=== PATIENT | male | born 1975 | race Caucasian/White ===

== ENCOUNTER 2020-04-01 16:23 | Outpatient (REF) | payer OTHER, SELFPAY | END 2020-04-01 16:24 | disposition home or self-care (01) | LOC: HO.LAB 16:23 | PROVIDERS: Visit Provider Internal Medicine | DX: Z20.822 Contact with and (suspected) exposure to COVID-19 (principal) | CPT/HCPCS: 36415; C9803; U0003 ==

== ENCOUNTER 2020-04-30 22:17 | Emergency (ER) | payer OTHER, SELFPAY ==
[2020-04-30 22:27] VITALS: BP 153/91; PULSE 84; RESP 16; TEMP 36.6; O2SAT 98; BMI 23.7
[2020-05-01] VITALS: PULSE 80; RESP 16
[2020-05-01] MEDS: Acetaminophen 325 MG TABLET 975 MG PO (01:34)
[2020-05-01] MEDS: Ketorolac Tromethamine 15 MG/ML VIAL IM (01:35)
[2020-05-01] MEDS: Lidocaine 4 % Patch ADH..PATCH 1 PATCH TRANSDERMA (01:35)
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
== END 2020-05-01 02:46 | disposition home or self-care (01) ==
PROVIDERS: Emergency Provider Student in an Organized Health Care Education/Training Program
DX: Z04.1 Encounter for examination and observation following transport accident (principal); M62.838 Other muscle spasm
CPT/HCPCS: 96372; 99284; J1885

== ENCOUNTER 2021-01-13 07:38 | Outpatient (REF) | payer OTHER, SELFPAY ==
--- NOTE | ~2021-01-13 | CT_ITS ---
EXAMINATION: CT ABDOMEN AND PELVIS WITH CONTRAST CLINICAL INFORMATION: Right lower quadrant pain COMPARISON: Previous CT of the abdomen and pelvis August 2017 and renal ultrasound November 2017 TECHNIQUE: Multidetector volumetric images were obtained from the superior aspect of the liver through the pubic symphysis following administration 85 mL of Omnipaque 350 intravenous contrast. Sagittal and coronal reformatted images were obtained on the technologist's workstation. Oral contrast: Yes This CT examination was performed using dose optimization techniques as appropriate, variously including the following: *Automated exposure control *Adjustment of mA and/or kV according to patient size (this includes techniques or standardized protocols for targeted exams where dose is matched to indication/reason for exam; i.e. extremities or head) *Use of iterative reconstruction technique DLP: 340 mGy-cm FINDINGS: LUNG BASES: The visualized lung bases are unremarkable. LIVER, GALLBLADDER, AND BILIARY TREE: The liver is normal in size, shape, and attenuation. There is a small 5 mm low-attenuation lesion in the right lobe of the liver axial image 16 series 3. This is too small to definitively characterize but probably represents a cyst and is stable from previous exam. No other focal liver lesion is seen. The gallbladder is unremarkable with no evidence of radiopaque gallstones, gallbladder wall thickening, or obvious pericholecystic inflammatory changes. PANCREAS: Unremarkable. SPLEEN: Unremarkable. ADRENAL GLANDS: Unremarkable. KIDNEYS AND URETERS: The kidneys are normal in size, shape, and attenuation. No hydronephrosis, hydroureter, or calculi seen. No perinephric stranding. BLADDER: Unremarkable. GASTROINTESTINAL TRACT: There is stool throughout the colon questionable for constipation. The small and large bowel are otherwise unremarkable. The appendix is unremarkable. The stomach is unremarkable. ABDOMINAL WALL: There is a small right inguinal hernia containing fat. LYMPH NODES: There is shotty bilateral inguinal lymphadenopathy. There is no ascites. VASCULAR: Unremarkable. PELVIC VISCERA: Unremarkable. OSSEOUS STRUCTURES: Unremarkable. CT/CT abdomen pelvis w con IMPRESSION: Normal-appearing appendix. Stool throughout the colon questionable for constipation. Tiny stable 5 mm liver lesion probably representing a cyst.
[2021-01-13] MEDS: iohexoL 350 MG/ML 100 ML INFUS..BTL IV (11:19)
[2021-01-13] MEDS: Barium Sulfate Oral (Vanilla) 450 ML ORAL.SUSP 900 ML PO (12:14)
== END 2021-01-13 07:39 | disposition home or self-care (01) ==
LOC: HO.CT 07:38
PROVIDERS: Absent Provider Nurse Practitioner Family; PCP Nurse Practitioner Family; Visit Provider Emergency Medicine
DX: R10.31 Right lower quadrant pain (principal)
CPT/HCPCS: 74177; Q9967

== ENCOUNTER 2023-01-30 14:37 | Outpatient (REF) | payer MEDICAID, SELFPAY ==
--- NOTE | ~2023-01-30 | XR_ITS ---
EXAMINATION: XR HAND, RIGHT CLINICAL INFORMATION: Hand pain. COMPARISON: None available. TECHNIQUE: PA, lateral, and oblique views of the right hand. FINDINGS: The bones and soft tissues are unremarkable. Some mild deformity of the 5th metacarpal may be secondary to a remote fracture. No acute fracture. Alignment is anatomic. Joint spaces are maintained. No erosions or soft tissue calcifications. XR/XR hand RT min 3V IMPRESSION: No evidence of an acute injury.
== END 2023-01-30 14:38 | disposition home or self-care (01) ==
LOC: HO.HHCX 14:37
PROVIDERS: Visit Provider Student in an Organized Health Care Education/Training Program
DX: M79.641 Pain in right hand (principal)
CPT/HCPCS: 73130

== ENCOUNTER 2023-03-28 09:04 | Outpatient (REF) | payer BC, SELFPAY ==
[2023-03-28 11:44] LABS: Hematocrit 43.2 % (42.0-52.0); Hemoglobin 14.8 g/dl (14.0-18.0); Mean Corpuscular HGB Conc 34.3 g/dl (31.0-36.0); Mean Corpuscular Hemoglobin 29.5 pg (27.0-33.0); Mean Corpuscular Volume 86.1 fL (80.0-98.0); Mean Platelet Volume 10.2 fL (9.4-12.4); Platelet Count 323 X10*3/uL (160-400); Red Blood Count 5.02 X10*6/uL (4.60-5.80); Red Cell Distribution Width 11.9 % (11.0-16.0); White Blood Count 8.5 X10*3/uL (4.8-10.8)
[2023-03-28 11:57] LABS: Estimated Average Glucose 183 mg/dL
[2023-03-28 12:15] LABS: Syphilis Screen Nonreactive (Nonreactive)
[2023-03-28 12:26] LABS: HBS Num1 > 1000.00 mIU/mL (0-7.99); HBc Num1 0.09 S/CO (0.00-0.79); HIV AB/AG Nonreactive (Nonreactive); HIV Num 1 0.05 S/CO (0.00-0.99); Hepatitis B Core Antibody Nonreactive (Nonreactive); ~HepC Num1 0.33 S/CO (0.00-0.79); ~Hepatitis B Surface Antibody REACTIVE (Nonreactive); ~Hepatitis C Antibody Nonreactive (Nonreactive)
[2023-03-28 12:45] LABS: Alanine Aminotransferase 12 U/L (0-40); Albumin Level 3.8 g/dL (3.5-5.0); Alkaline Phosphatase 99 U/L (39-117); Anion Gap 13 (12-20); Aspartate Amino Transferase 16 U/L (5-37); Bilirubin Total 0.4 mg/dL (0.0-1.0); Blood Urea Nitrogen 20 mg/dL (9-16); Carbon Dioxide 24 mmol/L (22-29); Chloride 105 mmol/L (96-108); Cholesterol 192 mg/dL (<200); Estimated Glomerular Filt Rate 54; Glucose Random 123 mg/dL (60-115); HDL Cholesterol 43 mg/dL (>40); LDL Cholesterol Calculated 130 mg/dL (<100); Potassium 4.1 mmol/L (3.3-5.1); Sodium 138 mmol/L (135-145); Total Protein 7.4 g/dL (6.5-8.0); Triglycerides 99 mg/dL (<150)
[2023-03-28 12:57] LABS: TSH reflex Free T4 2.47 uIU/mL (0.32-4.0)
[2023-03-28 14:54] LABS: CT PCR NOT DETECTED (Not Detect.); NG PCR NOT DETECTED (Not Detect.)
== END 2023-03-28 09:05 | disposition home or self-care (01) ==
LOC: HO.HHCL 09:04
PROVIDERS: Visit Provider Student in an Organized Health Care Education/Training Program
DX: Z00.00 Encounter for general adult medical examination without abnormal findings (principal); Z11.4 Encounter for screening for human immunodeficiency virus [HIV]; Z20.2 Contact with and (suspected) exposure to infections with a predominantly sexual mode of transmission
CPT/HCPCS: 0353U; 36415; 80053; 80061; 83036; 84443; 85027; 86704; 86706; 86780; 86803; 87389

== ENCOUNTER 2023-05-17 11:14 | Outpatient (AMB) | payer BC, SELFPAY ==
[2023-05-17 11:47] VITALS: BMI 24.4
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
== END 2023-05-17 12:16 | disposition home or self-care (01) ==
PROVIDERS: PCP Nurse Practitioner Family; Visit Provider Physical Medicine & Rehabilitation
DX: M65.341 Trigger finger, right ring finger (principal)
CPT/HCPCS: 99204

== ENCOUNTER 2023-05-17 11:14 | Outpatient (REF) | payer BC, SELFPAY ==
--- NOTE | ~2023-05-17 | XR_ITS ---
EXAMINATION: XR HAND, RIGHT CLINICAL INFORMATION: Right hand pain. COMPARISON: January 30, 2023. TECHNIQUE: Four views of the right hand. FINDINGS: Suspect old, healed fracture of the right fifth metacarpal bone, unchanged. The bones and soft tissues otherwise appear unremarkable. No acute fracture appreciated. Alignment is anatomic. Joint spaces are maintained. No erosions or soft tissue calcifications. XR/XR hand RT min 3V IMPRESSION: Essentially unremarkable plain film examination of the right right hand.
== END 2023-05-17 11:15 | disposition home or self-care (01) ==
LOC: HO.HOSX 11:14
PROVIDERS: PCP Nurse Practitioner Family; Visit Provider Physical Medicine & Rehabilitation
DX: M79.641 Pain in right hand (principal); M65.341 Trigger finger, right ring finger
CPT/HCPCS: 73130

== ENCOUNTER 2023-05-28 14:58 | Outpatient (RCR) | payer BC, SELFPAY ==
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
== END 2023-06-07 15:24 | disposition home or self-care (01) ==
LOC: HO.OT 14:58
PROVIDERS: PCP Student in an Organized Health Care Education/Training Program; Visit Provider Physical Medicine & Rehabilitation
DX: M65.341 Trigger finger, right ring finger (principal)
CPT/HCPCS: 97035; 97140; 97165

== ENCOUNTER 2023-09-06 13:25 | Outpatient (REF) | payer BC, SELFPAY ==
[2023-09-06 16:19] LABS: Estimated Average Glucose 163 mg/dL; Hemoglobin A1c % 7.3 % (<6.0)
[2023-09-06 16:26] LABS: Alanine Aminotransferase 18 U/L (0-40); Albumin Level 3.9 g/dL (3.5-5.0); Alkaline Phosphatase 80 U/L (39-117); Anion Gap 10 (12-20); Aspartate Amino Transferase 22 U/L (5-37); Bilirubin Total 0.6 mg/dL (0.0-1.0); Blood Urea Nitrogen 18 mg/dL (9-16); Calcium 9.4 mg/dL (8.4-10.2); Carbon Dioxide 27 mmol/L (22-29); Chloride 107 mmol/L (96-108); Cholesterol 151 mg/dL (<200); Estimated Glomerular Filt Rate 59; Glucose Random 83 mg/dL (60-115); HDL Cholesterol 50 mg/dL (>40); LDL Cholesterol Calculated 87 mg/dL (<100); Potassium 4.2 mmol/L (3.3-5.1); Sodium 140 mmol/L (135-145); Total Protein 7.1 g/dL (6.5-8.0); Triglycerides 74 mg/dL (<150)
[2023-09-06 17:03] LABS: Folate 11.3 ng/mL (> or = 4.0); Vitamin B12 531 pg/mL (200-900)
== END 2023-09-06 13:26 | disposition home or self-care (01) ==
LOC: HO.HHCL 13:25
PROVIDERS: Visit Provider Student in an Organized Health Care Education/Training Program
DX: E10.9 Type 1 diabetes mellitus without complications (principal)
CPT/HCPCS: 36415; 80053; 80061; 82607; 82746; 83036

== ENCOUNTER 2023-12-05 22:19 | Emergency (ER) | payer BC, SELFPAY ==
[2023-12-05 22:31] VITALS: BP 139/91; PULSE 90; RESP 16; TEMP 36; O2SAT 96; BMI 23.7
[2023-12-05 22:44] VITALS: BP 148/79; PULSE 66; RESP 20; TEMP 36.9; O2SAT 99
[2023-12-05 22:45] LABS: Glucose, Whole Blood 243 mg/dL (60-115)
--- NOTE | 2023-12-05 22:49 | ED.GENADULT ---
HPI - General Adult General Chief complaint: General Medical Stated complaint: Diabetes/gave himself the wrong insulin dose Time Seen by Provider: 12/05/23 22:48 Source: patient Mode of arrival: ambulatory Limitations: no limitations History of Present Illness ED Provider: libby HANNA narrative: Patient is type 1 diabetic on Lantus and Humalog insulin by mistake he took 24 units of Humalog instead of Lantus at 22:00 patient immediately had glucose at home on arrival POC was 243, it was 300 prior to taking his insulin dropped to 126 when examined. Patient is otherwise feeling normal Related Data Home Medications ?Medication ?Instructions ?Recorded ?Confirmed insulin glargine 100 unit/mL unit subcut 05/17/23 05/17/23 subcutaneous solution (Lantus U-100 Insulin) lisinopril 5 mg tablet 5 mg PO DAILY 05/17/23 05/17/23 pravastatin 20 mg tablet 20 mg PO DAILY 05/17/23 05/17/23 Previous Rx's ?Medication ?Instructions ?Recorded insulin glargine 100 unit/mL (3 30 unit (0.3 mL) subcut QPM 30 02/14/ mL) subcutaneous pen (Lantus days #9 mL Solostar U-100 Insulin) Allergies Allergy/AdvReac Type Severity Reaction Status Date / Time No Known Allergies Allergy Verified 12/05/23 22:33 [No Known Allergies*] Review of Systems Review of Systems: Yes all other systems are reviewed and are negative [facility] Past Medical History Medical History Diabetes mellitus type 1, uncontrolled Proteinuria Type 1 diabetes mellitus with other diabetic kidney complication Social History Social History Alcohol intake: current Alcohol intake frequency: a few times a month Substance Use Type: Marijuana Advance Directives: No Advance Directives Information Provided: No Current occupational status: employed 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 Oriented X3. No acute distress. Eyes: No pallor or icterus ENT: Pharynx normal. Oral Mucosa moist Neck: Normal inspection. Neck supple. CVS: Normal heart rate and rhythm. Pulses normal. Respiratory: No respiratory distress. Equal air entry bilateral, no wheezing/rales/rhonchi Abdomen: Soft and nontender. Bowel sounds are present, no mass palpable, Skin: Skin warm and dry. Normal skin color. Normal skin turgor. Extremities: No lower extremity edema. No calf tenderness Neuro: Oriented X 3. No motor deficit. Medical Decision Making Medical Decision Making [facility] Narrative: Patient's accidental taking short-acting insulin instead of Lantus taking p.o. glucose in the ER blood sugar stayed at 130 after 2 hours of accidentally taking of insulin will discharge patient home advised to keep an eye on blood sugar level and if it is less than 100 have extra glucose patient is well educated and no way that he will be checking more often Differential Diagnosis Differential Diagnoses: The differential diagnosis associated with the presentation includes Lab Data [facility] Lab Attestation statement: I reviewed the patient's lab results. Labs: Lab Results 12/05/23 12/05/23 12/05/23 Range/Units 22:31 23:07 23:43 POC Glucose 243 H 107 127 H (60-115) mg/dL Discharge Plan Discharge Clinical Impression: Insulin adverse reaction Patient Disposition: Home, Self-Care Instructions: Diabetes Type 1: Management (ED) Additional Instructions: Be careful in taking the type of insulin you take, do not mix up in future Check blood sugar every 2 hours for another 4 hours Have extra carbohydrate if blood sugar starts droping Prescriptions: No Action Lantus Solostar U-100 Insulin 100 unit/mL (3 mL) insulin pen 30 unit subcut QPM 30 Days Qty: 9 0RF Rx Instructions: Need appointment for further refills. lisinopril 5 mg tablet 5 mg PO DAILY pravastatin 20 mg tablet 20 mg PO DAILY insulin glargine [Lantus U-100 Insulin] 100 unit/mL solution subcut Stand Alone Forms: Work/School Release Interventions: ED Discharge Assessment Last Done: 12/06/23 01:03 Discharge Date/Time: 12/06/23 01:06 Print Language: Icelandic
[2023-12-05 23:11] LABS: Glucose, Whole Blood 107 mg/dL (60-115)
[2023-12-05 23:30] VITALS: BP 136/76; PULSE 72; RESP 20; TEMP 36.6; O2SAT 98
[2023-12-05 23:47] LABS: Glucose, Whole Blood 127 mg/dL (60-115)
[2023-12-06 01:03] VITALS: BP 125/80; PULSE 87; RESP 20; TEMP 36.7; O2SAT 98
== END 2023-12-06 01:06 | disposition home or self-care (01) ==
PROVIDERS: Emergency Provider Internal Medicine; PCP Student in an Organized Health Care Education/Training Program
DX: T38.3X5A Adverse effect of insulin and oral hypoglycemic [antidiabetic] drugs, initial encounter (principal); Y92.098 Other place in other non-institutional residence as the place of occurrence of the external cause; E10.9 Type 1 diabetes mellitus without complications; Z79.4 Long term (current) use of insulin; Z79.899 Other long term (current) drug therapy
CPT/HCPCS: 82947; 99283

== ENCOUNTER 2024-10-13 08:49 | Outpatient (REF) | payer MEDICAID, SELFPAY ==
--- OUTSIDE RECORDS SUMMARY | 2024-10-13 09:22 | XMS_ITS | Encounter Summary ---
Author Organization [employer] Address [address] [facility] 7t [place] [address] Care Team Providers Care Screen Printer Name Role Phone Noris Chavarria MD Primary Care Pro vider Reason for Visit * Reason Onset Date Comments Med Refill 07/30/2023 Encounter Details Date Type Department Care Team (Late st Contact Info) Description 07/30/2023 Refill [facility] [address] [place] [address] Noris Chavarria MD [address] [place] [address] Type 1 diabetes mellitus without complication (CMS/HCC) Social History Tobacco Use Types Packs/Day Years Used Date Smoking Tobacco: Some Days Cigarettes Smokeless Tobacco: Never Comments:Started smoking at 20 y of age until now -smoking 7 a day . PQT calc 9.45 Alcohol Use Standard Drinks/Week Comments Yes 0 (1 standard drink = 0.6 oz pur e alcohol) social Depression Answer Date Recorded Patient Health Questionnaire-9 Score 07/11/2023 Patient Health Questionnaire-9 Score 07/11/2023 Last PHQ-9: Questionnaire Data Not on file 0 07/11/2023 Housing Stability Answer Date Recorded What is your housing situation today? I have jc perez 01/08/[address] you li ve. Do you have problems with any of the following? None of the above 01/08/2023 Food Insecurity Answer Date Recorded Within the past 12 months, y ou worried that your food would run out before you got money to buy more: Never True 01/08/2023 Within the past 12 months,th e food you bought just didn't last and you didn't have enough money to get more: Never True Transportation Answer Date Recorded In the past 12 months, has l ack of transportation kept you from medical appts, meetings, work or from getting things needed for daily living? No 01/08/2023 Utilities Answer Date Recorded In the past 12 months, has t he electric, gas, oil or water company threatened to shut off services in your home? No 01/08/2023 Depression Answer Date Recorded Patient Health Questionnaire-2 Score 6 07/11/2023 Sex and Gender Information Value Date Recorded Sex Assigned at Male 01/16/2022 10:16 AM EDT Legal Sex Male 10:16 AM EDT Gender Identity Male 01/16/2022 10:16 AM EDT Sexual Orientation Straight 11/17/2022 4: 34 PM EDT documented as of this encounter Plan of Treatment Upcoming Encounters Date Type Department Care Team (Late st Contact Info) Description 10/13/2024 10:40 AM EDT Office Visit [facility] [address] [place] [phone] Arrived documented as of this encounter Visit Diagnoses Diagnosis Type 1 diabetes mellitus without complication (CMS/HCC) Type I (juvenile type) diabetes mellitus without mention of complication, not stated as uncontrolled documented in this encounter Additional Health Concerns Assessment Noted Time PHQ-9 Depression Total Score: 024 4:12 PM EDT documented as of this encounter Care Teams Screen Printer Relationship Specialty Start Date End Date Noris Chavarria MD [address] [place] [address] PCP - General Internal Medicine 08/23/22 documented as of this encounter
--- OUTSIDE RECORDS SUMMARY | 2024-10-13 09:22 | XMS_ITS | Clinical Summary ---
Author Organization [facility] Address [address] [facility] [address] [place] [phone] Phone Care Team Providers Care Food Mixer Name Role Phone Noris Chavarria MD Primary Care Pro vider Allergies Active Allergy Reactions Criticality Noted Date Comments Amoxicillin 09/22/2020 Other Reaction(s): acid reflux Clavulanic Acid 09/22/2020 Other Reaction(s): acid reflux Medications FREESTYLE TONY 2 SENSOR kit 1 each every 14 (fourteen) days. 024 Active FREESTYLE LITE Strp strips 1 each by Percutaneous route 3 (three) times a day before meals. 024 Active hydrOXYzine (VISTARIL) 25 MG capsule Take 25 mg by mouth daily as needed. 024 Active lisinopril (PRINIVIL,ZESTRI L) 10 MG tablet Take 10 mg by mouth every morning. 024 Active pravastatin (PRAVACHOL) 20 MG tablet Take 20 mg by mouth daily. at bedtime. 024 Active DEXCOM G7 SENSOR DeviIndications: Type 1 diabetes mellitus with hyperglycemia 1 each by Miscellaneous route Every 10 Days. 9 each 3 024 Active Additional Information Patient not taking.Reported on 09/25/2024 insulin glargine 100 unit/mL (3 mL) InPn injection penIndications:T ype 1 diabetes mellitus with hyperglycemia Inject 22 Units under the skin nightly at bedtime. 30 mL 1 025 Active Additional Information Patient taking differently: 18 UnitsSubcutaneous Nightly, Reported on 09/25/2024 BD ULTRA-FINE SNOW PEN NEEDLE 32 gauge x NdleIndications: Type 1 diabetes mellitus with hyperglycemia Inject 1 each under the skin 4 (four) times a day. 400 each 1 025 Active FREESTYLE TONY 3 PLUS SENSOR DeviIndications: Type 1 diabetes mellitus with hyperglycemia To monitor blood glucose, to change the sensor every 15 days 6 each 3 025 Active escitalopram oxalate (LEXAPRO) 5 MG tablet TAKE 1 TABLET BY MOUTH DAILY X 5 DAYS, THEN INCREASE TO 2 TABLETS BY MOUTH DAILY (10 MG) Active gabapentin (NEURONTIN) 100 MG capsule take 1 capsule by mouth three times a day as needed Active gabapentin (NEURONTIN) 300 MG capsule Take 300 mg by mouth nightly at bedtime. 025 Active insulin lispro (ADMELOG, HUMALOG) 100 unit/mL injection penIndications:T ype 1 diabetes mellitus with hyperglycemia Inject 3-7 Units under the skin 3 (three) times a day with meals. 15 mL 1 025 Active insulin lispro (ADMELOG, HUMALOG) 100 unit/mL injection penIndications:T ype 1 diabetes mellitus with hyperglycemia Inject 3-6 Units under the skin 3 (three) times a day with meals. 15 mL 1 [address]([place] cookie) Active Problems Problem Noted Date Diagnosed Date Type 1 diabetes mellitus with hyperglycemia 07/18 Assessment & Plan (09/25/2024 1:11 PM EDT): Control recently poor, worsened related to intercurrent issues. He is starting to feel better in general & BG readings are improving. Reviewed timing of analog insulin in relation to meals & advised to be somewhat more cautious when dosing to correct highs. Would likely benefit from visit w/ RD/CDE to work on this at some point. Will do labs. Continue to work on eating healthy & keeping active. To call or send in BG with problems with glycemic control. Overdue with ophtho. Assessment & Plan (02/07/2024 5:13 PM EST): Control suboptimal based on CGM download with excessive variability & excessive low BG. No severe hypoglycemia. Advised to lower basal insulin (glargine) from 22 to 20 units. Continue to work on optimizing dose of mealtime insulin based on planned food intake/glucose levels. Would likely benefit from visit w/ RD/CDE to work on this at some point. Will do labs through PCP - ? Due umalb/creat? Continue to work on eating healthy & keeping active. To call or send in BG with problems with glycemic control. Overdue with ophtho. Planning on seeing podiatry @ [facility]. Assessment & Plan (12/04/2023 10:22 AM EDT): Control is suboptimal based upon the patient's SMBG readings. No frequent or severe hypoglycemia. He had a couple lows and is not sure what caused them. He corrected with juice and sugar and was fine. We were able to give him sensor samples today to have him start using the CGM again to help with his glucose management. Will start the prior authorization for the tony 3 sensor plus. Will maintain his insulin dosing as once he is back on the sensor his glucose levels will improve. Continue to work on eating healthy and being active. To call or message with any issues managing his glucose levels. Over due for ophtho. Labs ordered Assessment & Plan (08/14/2023 1:13 PM EDT): He was diagnosed with type 1 diabetes at the age of 16. He has no known complications from the diabetes at this time. Since diagnosis he has only used insulin to control his glucose levels. His glucose control has improved based upon his recall of his A1C and his freestyle tony 2 sensor download. He has been having lows- likely due to too much lantus. He will correct with juice and sugar and then is fine. Discussed pathophysiology of diabetes and complications of uncontrolled diabetes. Discussed progressive nature of disease. Discussed rationale & goals for control. Role of diet, exercise, medications. Role of & goals for HbA1c & SMBG. Reviewed options to improve control with risks & benefits, including intensification of lifestyle & available medications. Discussed looking into the different insulin pumps available to see if this is something that would interest him. Would wait to start new job to see what insurance will cover and then we can work towards pump therapy. Reviewed normal insulin physiology, role of basal/bolus insulin. Reviewed appropriate timing of rapid acting analog in relation to meals. Reviewed site rotation, effect of site on insulin absorption. Discussed storage/shelf life of insulin. Discussed prevention & treatment of hypoglycemia. With the frequent lows overnight, will lower his lantus to help prevent the lows. Continue to work on eating healthy & keeping active. To call or send in log with problems with glucose control. Foot & nail care good. Over due to see ophtho. Will call to schedule. He was also seen by Dr Courtney to discuss the treatment plan. Hypertension 01/30/2023 Assessment & Plan (09/25/2024 1:09 PM EDT): Appears well controlled. Assessment & Plan (02/07/2024 5:09 PM EST): Appears well controlled. Hyperlipidemia 05/28/2012 Encounters Date Type Department Care Team Description 09/25/2024 10:32 AM EDT - 09/25/2024 11:59 PM EDT Hospital Encounter [facility] [address] [place] [address] [place] [address] Ludmila Courtney MD Discharge Disposition: Home or Self Care 09/25/2024 10:00 AM EDT Office Visit [facility] [address] [place] [address] Ludmila Courtney MD Type 1 diabetes mellitus with hyperglycemia (Primary Dx); Primary hypertension 07/21/2024 Refill [facility] [address] [place] [address] Krystal Stanley MA Medication Refill from Last 3 Months Social History Tobacco Use Types Packs/Day Years Used Date Smoking Tobacco: Every Day Cigarettes Passive Smoke Exposure: Current Smokeless Tobacco: Never Tobacco Cessation:Ready to Q uit: No; Counseling Given: No Alcohol Use Standard Drinks/Week Comments Not Currently 0 (1 standard drink = 0.6 oz pur e alcohol) ocassionaly Education Answer Date Recorded Are you interested in more education? Not on darinel e 07/14/2022 Are you concerned about learning? Not on file 07/14/2022 No 07/14/2022 No 07/14/2022 Digital Access Answer Date Recorded No 08/14/2022 No 08/14/2022 Reliable internet access at home? Not on file 08/14/2022 Device with a working camera? Not on file Sex and Gender Information Value Date Recorded Sex Assigned at Male 09/29/2018 10:47 PM EDT Legal Sex Male 9:27 PM EDT Gender Identity Male 09/29/2018 10:47 PM EDT Sexual Orientation Straight 09/29/2018 10 :47 PM EDT Last Filed Vital Signs Vital Sign Reading Time Taken Comments Blood Pressure 130/70 09/25/2024 9:40 AM EDT Pulse 79 09/25/2024 9:40 AM EDT Temperature 36.4 C (97.5 F) 01/06/2019 2:30 PM EDT Respiratory Rate 16 01/06/2019 5:00 PM EDT Oxygen Saturation 99% 09/25/2024 9:40 AM EDT Inhaled Oxygen Concentration - - Weight 72.2 kg (159 lb 3.2 oz) 09/25/2024 9:40 A M EDT Height 182.9 cm (6' 0.01 ) 02/07/2024 2:12 PM ES T Body Mass Index 21.59 02/07/2024 2:12 PM EST Plan of Treatment Upcoming Encounters Date Type Department Care Team (Late st Contact Info) Description 12/31/2024 8:20 AM EDT Office Visit [facility] [address] [place] [address] Deysi Scott PA-C [address] [place] [address] 04/01/2025 9:00 AM EST Office Visit [facility] [address] [place] [address] Ludmila Courtney MD [address] [place] [address] Health Maintenance Due Date Last Done Comments DEPRESSION SCREENING 1987 SMOKING Hx and SMOKELESS TOBACCO SCREENING 12/14/1988 HEPATITIS C SCREENING 12/14/1993 HIV ONE-TIME SCREENING (18-6 5 YEARS) 12/14/1993 COLOGUARD 12/14/2020 COLONOSCOPY 12/14/2020 COLORECTAL CANCER SCREENING 12/14/2020 FIT TEST 12/14/2020 FOBT 12/14/2020 SIGMOIDOSCOPY 12/14/2020 VIRTUAL COLONOSCOPY 12/14/2020 DIABETIC EYE EXAM 08/14/2023 COVID-19 VACCINE (2023-2 5 season) 2023 05/11/2023, 08/07/2020, 07/17/2020 HEMOGLOBIN A1C 12/26/2024 09/25/2024, 09/06/2023 BLOOD PRESSURE 03/28/2025 09/25/2024 CREATININE LEVEL 09/25/2025 09/25/2024, 01/06/2019, 09/29/2018 LIPID PANEL 09/25/2025 09/25/2024, 09/06/2023 POTASSIUM LEVEL 09/25/2025 09/25/2024, 01/06/2019, 09/29/2018 Adult Td,Tdap Booster 01/30/2033 01/30/2023 , 12/04/2012, 08/31/2004 PNEUMOCOCCAL VACCINES (0-49 years) Completed 03/28/2023, 09/18/2014, 12/31/2000 HEPATITIS A VACCINES Aged Out No long er eligible based on patient's age to complete this topic HIB VACCINES Aged Out No longer eligi ble based on patient's age to complete this topic MENINGOCOCCAL VACCINES (ACWY) Aged Out No longer eligible based on patient's age to complete this topic MENINGOCOCCAL VACCINES (B) Aged Out N o longer eligible based on patient's age to complete this topic Medical Devices Not on file Procedures Procedure Name Priority Date/Time Associated Diagnosis Comments MICROALBUMIN/CREATININE RATIO, RANDOM URINE Routine 09/25/2024 11:03 AM EDT Type 1 diabetes mellitus with hyperglycemia HEMOGLOBIN A1C Routine 09/25/2024 10:53 AM EDT Type 1 diabetes mellitus with hyperglycemia TSH WITH REFLEX Routine 09/25/2024 10:53 AM EDT Type 1 diabetes mellitus with hyperglycemia ASPARTATE AMINOTRANSFERASE (AST) Routine 09/25/2024 10:53 AM EDT Type 1 diabetes mellitus with hyperglycemia ALANINE AMINOTRANSFERASE (ALT) Routine 09/25/2024 10:53 AM EDT Type 1 diabetes mellitus with hyperglycemia BASIC METABOLIC PANEL Routine 09/25/2024 10:53 AM EDT Type 1 diabetes mellitus with hyperglycemia LIPID PANEL Routine 09/25/2024 10:53 AM EDT Type 1 diabetes mellitus with hyperglycemia from Last 3 Months Results * (ABNORMAL) Microalbumin/creatinine ratio, random urine (09/25/2024 11:03 AM EDT) URINE MICROALBUMIN 85.9(H) 0 - 2.3 mg/dL [facility] URINE CREATININE 144 mg/dL [facility] MICROALB/CRE RATIO 596.5(H) 0 - 20 mg/g Cre [facility] Urine (Urine) 09/25/2024 11: 03 AM EDT 09/25/2024 11:10 AM EDT us Ludmila Courtney MD URINE ORDERABLES Final Result Performing Organization Address City/[facility]/ZIP Co de Phone Number [address] [address] * TSH with reflex (09/25/2024 10:53 AM EDT) TSH 1.49 0.27 - 4.20 uIU/mL [facility] Blood 09/25/2024 10:5 3 AM EDT 09/25/2024 10:59 AM EDT us Ludmila Courtney MD LAB BLOOD ORDERABLES F inal Result Performing Organization Address City/[facility]/ZIP Co de Phone Number [address] [address] * Alanine aminotransferase (ALT) (09/25/2024 10:53 AM EDT) ALT 21 0 - 40 U/L [facility] Blood 09/25/2024 10:5 3 AM EDT 09/25/2024 10:59 AM EDT us Ludmila Courtney MD LAB BLOOD ORDERABLES F inal Result [address] [address] * Aspartate aminotransferase (AST) (09/25/2024 10:53 AM EDT) AST 27 0 - 37 U/L [facility] Blood 09/25/2024 10:5 3 AM EDT 09/25/2024 10:59 AM EDT Ludmila Courtney MD LAB BLOOD ORDERABLES F inal Result Performing Organization Address [facility] Co de Phone Number [address] [phone] * (ABNORMAL) Hemoglobin A1c (09/25/2024 10:53 AM EDT) HEMOGLOBIN A1C 8.8(H) 4.3 - 5.8 % [facility] Blood 09/25/2024 10:5 3 AM EDT 09/25/2024 10:59 AM EDT us Ludmila Courtney MD LAB BLOOD ORDERABLES F inal Result Performing Organization Address City/[facility]/ZIP Co de Phone Number [address] [address] * Lipid panel (09/25/2024 10:53 AM EDT) HDL 48 mg/dL [facility] Comment: Interpretation <40 mg/dL: Low HDL cholesterol (major risk factor for CHD) Greater than or equal to 60 mg/dL: High HDL cholesterol ( negative risk factor for CHD) HDL - cholesterol is affected by a number of factors, e.g. smoking, excerise, hormones, sex and age. CHOLESTEROL 165 0 - 240 mg/dL [facility] TRIGLYCERIDES 114 30 - 160 mg/dL [facility] LDL 94 50 - 129 mg/dL [facility] Comment: LDL levels in terms of risk for coronary heart disease: <100 mg/dL: Optimal 100-129 mg/dL: Near or above optimal 130-159 mg/dL: Borderline high 160-189 mg/dL: High >190 mg/dL: Very High CARDIAC RISK RATIO 3.4 3.4 - 5.0 C [facility] Blood 09/25/2024 10:5 3 AM EDT 09/25/2024 10:59 AM EDT Ludmila Courtney MD LAB BLOOD ORDERABLES F inal Result Performing Organization Address City/State/[facility] Co de Phone Number [address] [address] * (ABNORMAL) Basic metabolic panel (09/25/2024 10:53 AM EDT) SODIUM 138 133 - 146 mmol/L [facility] CHLORIDE 102 96 - 108 mmol/L [facility] POTASSIUM 4.4 3.3 - 5.1 mmol/L [facility] CO2 27 21 - 35 mmol/L [facility] BUN 18 6 - 19 mg/dL [facility] CREATININE 1.70(H) 0.5 - 1.5 mg/dL [facility] GLUCOSE 111(H) 70 - 99 mg/dL [facility] CALCIUM 9.7 8.4 - 10.3 mg/dL [facility] EGFR 49(L) >59 mL/min/1.7 3m2 [facility] Comment:Estimated glomerular filtration rate calculated using the CKD-EPI refit equation. ANION GAP 13 10 - 20 mmol/L [facility] Blood 09/25/2024 10:5 3 AM EDT 09/25/2024 10:59 AM EDT us Ludmila Courtney MD LAB BLOOD ORDERABLES F inal Result [facility] [address] [place], [place] [phone] from Last 3 Months Insurance [place] * Guarantor: Henrik Agarwal Account Type Relation to Patient Date of Phone Billing Address Personal/Family Self [address] [place] [address] [place] [address] [place] * Guarantor: Henrik Agarwal Account Type Relation to Patient Date of Phone Billing Address Personal/Family Self [address] [place] [address] * Guarantor: Henrik gAarwal Account Type Relation to Patient Date of Phone Billing Address Personal/Family Self 1975 [address] [facility] [address] [place] [address] Care Teams Food Mixer Relationship Specialty Start Date End Date Noris Chavarria MD [address] [place] [phone] PCP - General Internal Medicine 08/08/23 Additional Source Comments The information contained in this document represents components of the legal health record. It is not the complete legal health record.[facility]
[2024-10-13 12:23] LABS: Alanine Aminotransferase 21 U/L (0-40); Albumin Level 3.9 g/dL (3.5-5.0); Alkaline Phosphatase 98 U/L (39-117); Anion Gap 12 (12-20); Aspartate Amino Transferase 28 U/L (5-37); Blood Urea Nitrogen 16 mg/dL (9-16); Calcium 8.8 mg/dL (8.4-10.2); Carbon Dioxide 27 mmol/L (22-29); Chloride 104 mmol/L (96-108); Estimated Glomerular Filt Rate 44; Potassium 3.6 mmol/L (3.3-5.1); Sodium 139 mmol/L (135-145); Total Protein 7.1 g/dL (6.5-8.0)
== END 2024-10-13 08:50 | disposition home or self-care (01) ==
LOC: HO.HHCL 08:49
PROVIDERS: PCP Student in an Organized Health Care Education/Training Program; Visit Provider Student in an Organized Health Care Education/Training Program
DX: N17.9 Acute kidney failure, unspecified (principal)
CPT/HCPCS: 36415; 80053

== ENCOUNTER 2024-10-13 13:24 | Outpatient (REF) | payer MEDICAID, SELFPAY ==
--- NOTE | ~2024-10-13 | US_ITS ---
EXAMINATION: US HEAD AND NECK LIMITED CLINICAL INFORMATION: Localized swelling/mass/lump.. COMPARISON: None available. TECHNIQUE: Linear transducer ly-scale and color Doppler examination with attention to the right submandibular region. FINDINGS: There is a 1.6 and 2.0 cm fatty hilum prominent lymph nodes. US/US soft tiss head and/or neck IMPRESSION: Nonspecific prominent less than 2 cm lymph nodes, right submandibular compartment.. Electronically signed by: Nicolas Pacheco MD 10/13/2024 02:23 PM EDT
== END 2024-10-13 13:25 | disposition home or self-care (01) ==
LOC: HO.US 13:24
PROVIDERS: PCP Student in an Organized Health Care Education/Training Program; Visit Provider Student in an Organized Health Care Education/Training Program
DX: R22.0 Localized swelling, mass and lump, head (principal)
CPT/HCPCS: 76536

== ENCOUNTER → 2024-10-13 13:44 | Outpatient (BNV) | payer MEDICAID, SELFPAY | PROVIDERS: PCP Student in an Organized Health Care Education/Training Program; Visit Provider Radiology Diagnostic Radiology | DX: R59.0 Localized enlarged lymph nodes (principal) | CPT/HCPCS: 76536 ==

== ENCOUNTER 2024-10-31 10:49 | Outpatient (REF) | payer MEDICAID, SELFPAY ==
--- OUTSIDE RECORDS SUMMARY | 2024-10-31 10:57 | XMS_ITS | Encounter Summary ---
Author Organization [employer] Address [address] [facility] [address] [place] [address] Care Team Providers Care Resident Program Specialist Name Role Phone Noris Chavarria MD Primary Care Pro vider Reason for Visit * Reason Onset Date Comments Med Refill 07/30/2023 Encounter Details Date Type Department Care Team (Late st Contact Info) Description 07/30/2023 Refill [facility] [address] [place] [address] Noris Chavarria MD [address] [place] [address] Type 1 diabetes mellitus without complication (CMS/HCC) [...] Care Team (Late st Contact Info) Description 12/25/2024 2:15 PM EDT Office Visit [facility] [address] [place] [address] Noris Chavarria MD [address] [place] [address] 01/23/2025 10:30 AM EST Office Visit [facility] [address] [place] [address] Kathleen Castellanos, OD [address] [place] [address] documented as of this encounter Visit Diagnoses Diagnosis Type 1 diabetes mellitus without complication (CMS/HCC) Type I (juvenile type) diabetes mellitus without mention of complication, not stated as uncontrolled documented in this encounter Additional Health Concerns Assessment Noted Time PHQ-9 Depression Total Score: 024 4:12 PM EDT documented as of this encounter Care Teams Resident Program Specialist Relationship Specialty Start Date End Date Noris Chavarria MD [address] [place] [phone] PCP - General Internal Medicine 6/7/23 documented as of this encounter
--- OUTSIDE RECORDS SUMMARY | 2024-10-31 10:57 | XMS_ITS | Clinical Summary ---
Author Organization [facility] Address [address] [facility] [address] [place] [address] Phone Care Team Providers Care Protection Engineer Name Role Phone Noris Chavarria MD Primary [...] 11:59 PM EDT Hospital Encounter [facility] [address] [place] [address] Ludmila Courtney MD Discharge Disposition: Home or Self Care 09/25/2024 10:00 AM EDT Office Visit [facility] [address] [place] [address] Ludmila Courtney MD Type 1 diabetes mellitus with hyperglycemia (Primary Dx); Primary hypertension from Last 3 Months Social History Tobacco [...] AM EDT Office Visit [facility] [address] [place] [address] Deysi Scott PA-C [address] [place] [address] 04/01/2025 9:00 AM EST Office Visit [facility] [address] [place] [address] Ludmila Courtney MD [address] [place] [address] Health Maintenance Due Date Last Done Comments [...] URINE MICROALBUMIN 85.9(H) 0 - 2.3 mg/dL [facility] URINE CREATININE 144 mg/dL [facility] MICROALB/CRE RATIO 596.5(H) 0 - 20 mg/g Cre [facility] Urine (Urine) 09/25/2024 11: 03 AM EDT 09/25/2024 11:10 AM EDT Ludmila Courtney MD URINE ORDERABLES Final Result [address] [address] * TSH with reflex (09/25/2024 10:53 AM EDT) TSH 1.49 0.27 - 4.20 uIU/mL [facility] Blood 09/25/2024 10:5 3 AM EDT 09/25/2024 10:59 AM EDT us Ludmila Courtney MD LAB BLOOD ORDERABLES F inal Result [address] [address] * Alanine aminotransferase (ALT) (09/25/2024 10:53 AM EDT) ALT 21 0 - 40 U/L [facility] Blood 09/25/2024 10:5 3 AM EDT 09/25/2024 10:59 AM EDT us Ludmila Courtney MD LAB BLOOD ORDERABLES F inal Result Performing Organization Address [facility] Co de Phone Number [address] [address] * Aspartate aminotransferase (AST) (09/25/2024 10:53 AM EDT) AST 27 0 - 37 U/L [facility] Blood 09/25/2024 10:5 3 AM EDT 09/25/2024 10:59 AM EDT us Ludmila Courtney MD LAB BLOOD ORDERABLES F inal Result Performing Organization Address [facility] Co de Phone Number [address] [address] * (ABNORMAL) Hemoglobin A1c (09/25/2024 10:53 AM EDT) HEMOGLOBIN A1C 8.8(H) 4.3 - 5.8 % [facility] Blood 09/25/2024 10:5 3 AM EDT 09/25/2024 10:59 AM EDT us Ludmila Courtney MD LAB BLOOD ORDERABLES F inal Result Performing Organization Address [facility] Co de Phone Number [address] [address] * Lipid panel (09/25/2024 10:53 AM EDT) HDL 48 mg/dL [facility] Comment: Interpretation <40 mg/dL: Low HDL cholesterol (major risk factor for CHD) Greater than or equal to 60 mg/dL: High HDL cholesterol ( negative risk factor for CHD) HDL - cholesterol is affected by a number of factors, e.g. smoking, excerise, hormones, sex and age. CHOLESTEROL 165 0 - 240 mg/dL [facility] TRIGLYCERIDES 114 30 - 160 mg/dL [facility] LDL 94 50 - 129 mg/dL [facility] Comment: LDL levels in terms of risk for coronary heart disease: <100 mg/dL: Optimal 100-129 mg/dL: Near or above optimal 130-159 mg/dL: Borderline high 160-189 mg/dL: High >190 mg/dL: Very High CARDIAC RISK RATIO 3.4 3.4 - 5.0 C [facility] Blood 09/25/2024 10:5 3 AM EDT 09/25/2024 10:59 AM EDT Ludmila Courtney MD LAB BLOOD ORDERABLES F inal Result Performing Organization Address [facility] Co de Phone Number [address] [address] * (ABNORMAL) Basic metabolic panel (09/25/2024 10:53 AM EDT) SODIUM 138 133 - 146 mmol/L [facility] CHLORIDE 102 96 - 108 mmol/L [facility] POTASSIUM 4.4 3.3 - 5.1 mmol/L [facility] CO2 27 21 - 35 mmol/L [facility] BUN 18 6 - 19 mg/dL [facility] CREATININE 1.70(H) 0.5 - 1.5 mg/dL [facility] GLUCOSE 111(H) 70 - 99 mg/dL [facility] CALCIUM 9.7 8.4 - 10.3 mg/dL [facility] EGFR 49(L) >59 mL/min/1.7 3m2 [facility] Comment:Estimated glomerular filtration rate calculated using the CKD-EPI refit equation. ANION GAP 13 10 - 20 mmol/L [facility] Blood 09/25/2024 10:5 3 AM EDT 09/25/2024 10:59 AM EDT us Ludmila Courtney MD LAB BLOOD ORDERABLES F inal Result Performing Organization Address City/[facility]/ZIP Co de Phone Number [address] [place] [address] from Last 3 Months Insurance [place] * Guarantor: Henrik Agarwal Account Type Relation to Patient Date of Phone Billing Address Personal/Family Self [address] [place] [address] [place] * Guarantor: Henrik Agarwal Account Type Relation to Patient Date of Phone Billing Address Personal/Family Self [address] [place] [address] * Guarantor: Henrik Agarwal Account Type Relation to Patient Date of Phone Billing Address Personal/Family Self [address] [place] [address] Care Teams Protection Engineer Relationship Specialty Start Date End Date Noris Chavarria MD [address] [place] [address] PCP - General Internal Medicine 08/08/23 Additional Source Comments The information contained in this document represents components of the legal health record. It is not the complete legal health record.[facility]
[2024-10-31 13:07] LABS: Appearance Urine Clear; Glucose Urine UA Negative (Negative); PH 6.5 (5.0-9.0); Specific Gravity - Urine 1.015 (1.005-1.025); UMIC TRIGGER UACC YES
[2024-10-31 14:00] LABS: Alanine Aminotransferase 27 U/L (0-40); Albumin Level 3.7 g/dL (3.5-5.0); Alkaline Phosphatase 89 U/L (39-117); Anion Gap 12 (12-20); Aspartate Amino Transferase 33 U/L (5-37); Blood Urea Nitrogen 13 mg/dL (9-16); Calcium 9.0 mg/dL (8.4-10.2); Carbon Dioxide 26 mmol/L (22-29); Chloride 105 mmol/L (96-108); Estimated Glomerular Filt Rate 50; Potassium 3.8 mmol/L (3.3-5.1); Sodium 139 mmol/L (135-145); Total Protein 6.6 g/dL (6.5-8.0)
== END 2024-10-31 10:50 | disposition home or self-care (01) ==
LOC: HO.HHCL 10:49
PROVIDERS: PCP Student in an Organized Health Care Education/Training Program; Visit Provider Student in an Organized Health Care Education/Training Program
DX: N17.9 Acute kidney failure, unspecified (principal)
CPT/HCPCS: 36415; 80053; 81001

== ENCOUNTER 2024-12-19 14:16 | Outpatient (REF) | payer MEDICAID, SELFPAY ==
--- NOTE | ~2024-12-19 | US_ITS ---
EXAMINATION: US KIDNEY BILATERAL HISTORY: ACUTE KIDNEY FAILURE TECHNIQUE: Real-time grayscale ultrasound imaging of the kidneys was performed and images were reviewed. COMPARISON: Comparison is made with the prior examination dated 12/05/2017. FINDINGS: Right kidney: The right kidney measures 9.7 x 5 3 x 4.9 cm. Renal parenchymal echotexture and thickness are normal. There are no masses. There is no hydronephrosis or renal calculi. Left Kidney: The left kidney measures 10.0 x 5.7 x 3.9 cm. Renal parenchymal echotexture and thickness are normal. There are no masses. There is no hydronephrosis or renal calculi. US/US renal BI IMPRESSION: Unremarkable renal ultrasound. Electronically signed by: Manohar Ortega MD 12/19/2024 03:27 PM EDT
--- OUTSIDE RECORDS SUMMARY | 2024-12-19 14:22 | XMS_ITS | Encounter Summary ---
Author Organization [employer] Address [address] [place] [address] [address] [place] [address] Care Team Providers Care Electrologist Name Role Phone Angy Tran YOVANNY Primary Care Provider [phone] Noris Chavarria MD Primary Care Pro vider Encounter Details Date Type Department Care Team (Late st Contact Info) Description 04/24/2022 Orders Only [facility] [address] [place], [place] [phone] Kirsten Conte LPN Social History Tobacco Use Types Packs/Day Years Used Date Smoking Tobacco: Never Assessed Sex and Gender Information Value Date Recorded Sex Assigned at Male 01/16/2022 10:16 AM EDT Legal Sex Male 10:16 AM EDT Gender Identity Male 01/16/2022 10:16 AM EDT Sexual Orientation Straight 11/17/2022 4: 34 PM EDT documented as of this encounter Plan of Treatment Upcoming Encounters Date Type Department Care Team (Late st Contact Info) Description 12/26/2024 1:00 PM EDT Office Visit [facility] [address] [place], [place] [phone] Noris Chavarria MD [address] [place], [place] [phone] 01/23/2025 10:30 AM EST Office Visit [facility] OPTOMETRY [address] [place], [place] [phone] Kathleen Castellanos, OD [address] [place], [place] [phone] documented as of this encounter Visit Diagnoses Not on filedocumented in this encounter Care Teams Electrologist Relationship Specialty Start Date End Date Angy Tran FNP [address] [place] [phone] PCP - General Family Medicine 11/14/21 08/22/22 Noris Chavarria MD [address] [place] [address] PCP - General Internal Medicine 08/23/22 documented as of this encounter
--- OUTSIDE RECORDS SUMMARY | 2024-12-19 14:22 | XMS_ITS | Clinical Summary ---
Author Organization [facility] Address [address] [facility] [address] [place] [phone] Phone Care Team Providers Care Arboreal Scientist Name Role Phone Noris Chavarria MD Primary Care Pro vider Allergies Active Allergy Reactions Criticality Noted Date Comments Amoxicillin 09/22/2020 Other Reaction(s): acid reflux Clavulanic Acid 09/22/2020 Other Reaction(s): acid reflux Medications FREESTYLE TONY 2 SENSOR kit 1 each every 14 (fourteen) days. 07/31/19 24 Active FREESTYLE LITE Strp strips 1 each by Percutaneous route 3 (three) times a day before meals. 05/29/19 24 Active hydrOXYzine (VISTARIL) 25 MG capsule Take 25 mg by mouth daily as needed. 07/04/19 24 Active lisinopril (PRINIVIL,ZESTRI L) 10 MG tablet Take 10 mg by mouth every morning. 07/30/19 24 Active pravastatin (PRAVACHOL) 20 MG tablet Take 20 mg by mouth daily. at bedtime. 07/03/19 24 Active DEXCOM G7 SENSOR DeviIndications: Type 1 diabetes mellitus with hyperglycemia 1 each by Miscellaneous route Every 10 Days. 9 each 3 12/05/19 24 Active Additional Information Patient not taking.Reported on 09/25/2024 insulin glargine 100 unit/mL (3 mL) InPn injection penIndications:T ype 1 diabetes mellitus with hyperglycemia Inject 22 Units under the skin nightly at bedtime. 30 mL 1 07/22/19 25 Active Additional Information Patient taking differently: 18 UnitsSubcutaneous Nightly, Reported on 09/25/2024 BD ULTRA-FINE SNOW PEN NEEDLE 32 gauge x NdleIndications: Type 1 diabetes mellitus with hyperglycemia Inject 1 each under the skin 4 (four) times a day. 400 each 1 09/10/19 Active escitalopram oxalate (LEXAPRO) 5 MG tablet TAKE 1 TABLET BY MOUTH DAILY X 5 DAYS, THEN INCREASE TO 2 TABLETS BY MOUTH DAILY (10 MG) 09/14/19 Active gabapentin (NEURONTIN) 100 MG capsule take 1 capsule by mouth three times a day as needed 09/14/19 Active gabapentin (NEURONTIN) 300 MG capsule Take 300 mg by mouth nightly at bedtime. 09/14/19 Active insulin lispro (ADMELOG, HUMALOG) 100 unit/mL injection penIndications:T ype 1 diabetes mellitus with hyperglycemia Inject 3-7 Units under the skin 3 (three) times a day with meals. 15 mL 1 10/07/19 Active FREESTYLE TONY 3 PLUS SENSOR DeviIndications: Type 1 diabetes mellitus with hyperglycemia To monitor blood glucose, to change the sensor every 15 days 6 each 3 11/04/19 Active Active Problems Problem Noted Date Diagnosed Date [...] nail care good. Over due to see chandler. Will call to schedule. He was also seen by Dr Courtney to discuss the treatment plan. Hypertension 01/30/2023 Assessment & Plan (09/25/2024 1:09 PM EDT): Appears well controlled. Assessment & Plan (02/07/2024 5:09 PM EST): Appears well controlled. Hyperlipidemia 05/28/2012 Encounters Date Type Department Care Team Description 11/25/2024 Telephone [facility] [address] [place] [address] Krystal Stanley MA Medication Prior Authorization 11/03/2024 Refill [facility] [address] [place] [address] Krystal Stanley MA Medication Refill 09/25/2024 10:32 AM EDT - 09/25/2024 11:59 PM EDT Hospital Encounter [facility] [address] [place] [address] Ludmila Courtney MD Discharge Disposition: Home or Self Care 09/25/2024 10:00 AM EDT Office Visit [facility] [address] [place] [address] Ludmila Courtney MD Type 1 diabetes mellitus [...] AM EDT Office Visit [facility] [address] [place] [address] Deysi Scott PA-C [address] [place] [address] 04/01/2025 9:00 AM EST Office Visit [facility] [address] [place] [address] Ludmila Courtney MD [address] [place] [address] Health Maintenance Due Date Last Done Comments DEPRESSION SCREENING 1987 SMOKING Hx and SMOKELESS TOBACCO SCREENING 12/14/1988 HEPATITIS C SCREENING 12/14/1993 HIV ONE-TIME SCREENING (18-65 YEARS) 12/14/1993 COLOGUARD 12/14/2020 COLONOSCOPY 12/14/2020 COLORECTAL CANCER SCREENING 12/14/2020 FIT TEST 12/14/2020 FOBT 12/14/2020 SIGMOIDOSCOPY 12/14/2020 VIRTUAL COLONOSCOPY 12/14/2020 DIABETIC EYE EXAM 08/14/2023 INFLUENZA VACCINE (#1) 2024 , 01/07/2021, 12/04/2012, Additional history exists COVID-19 VACCINE ( season) 2024 05/11/2023, 08/07/2020, 07/17/2020 HEMOGLOBIN A1C 12/26/2024 09/25/2024, 09/06/2023 BLOOD PRESSURE 03/28/2025 09/25/2024 CREATININE LEVEL 09/25/2025 09/25/2024, , 09/29/2018 LIPID PANEL 09/25/2025 09/25/2024, 09/06/2023 POTASSIUM LEVEL 09/25/2025 09/25/2024, 12/18, 09/29/2018 Adult Td,Tdap Booster 01/30/2033 01/30/2023 , [...] URINE MICROALBUMIN 85.9(H) 0 - 2.3 mg/dL [facility] URINE CREATININE 144 mg/dL [facility] MICROALB/CRE RATIO 596.5(H) 0 - 20 mg/g Cre [facility] Urine (Urine) 09/25/2024 11: 03 AM EDT 09/25/2024 11:10 AM EDT us Ludmila Courtney MD URINE ORDERABLES Final Result Performing Organization Address [facility]/ZIP Co de Phone Number [address] [address] * TSH with reflex (09/25/2024 10:53 AM EDT) TSH 1.49 0.27 - 4.20 uIU/mL [facility] Blood 09/25/2024 10:5 3 AM EDT 09/25/2024 10:59 AM EDT us Ludmila Courtney MD LAB BLOOD ORDERABLES F inal Result Performing Organization Address City/[facility]/ZIP Co de Phone Number [address] [address] * Alanine aminotransferase (ALT) (09/25/2024 10:53 AM EDT) ALT 21 0 - 40 U/L [facility] Blood 09/25/2024 10:5 3 AM EDT 09/25/2024 10:59 AM EDT us Ludmila Courtney MD LAB BLOOD ORDERABLES F inal Result [address] [address] * Aspartate aminotransferase (AST) (09/25/2024 10:53 AM EDT) AST 27 0 - 37 U/L [facility] Blood 09/25/2024 10:5 3 AM EDT 09/25/2024 10:59 AM EDT us Ludmila Courtney MD LAB BLOOD ORDERABLES F inal Result Performing Organization Address [facility] Co de Phone Number [address] [address] * (ABNORMAL) Hemoglobin A1c (09/25/2024 10:53 AM EDT) HEMOGLOBIN A1C 8.8(H) 4.3 - 5.8 % [facility] Blood 09/25/2024 10:5 3 AM EDT 09/25/2024 10:59 AM EDT Ludmila Courtney MD LAB BLOOD ORDERABLES F inal Result Performing Organization Address City/[facility]/ZIP Co de Phone Number [address] [address] * Lipid panel (09/25/2024 10:53 AM EDT) HDL 48 mg/dL [facility] Comment: Interpretation <40 mg/dL: Low HDL cholesterol (major risk factor for CHD) Greater than or equal to 60 mg/dL: High HDL cholesterol ( negative risk factor for CHD) HDL - cholesterol is affected by a number of factors, e.g. smoking, excerise, hormones, sex and age. CHOLESTEROL 165 0 - 240 mg/dL [facility] TRIGLYCERIDES 114 30 - 160 mg/dL [facility] LDL 94 50 - 129 mg/dL [facility] Comment: LDL levels in terms of risk for coronary heart disease: <100 mg/dL: Optimal 100-129 mg/dL: Near or above optimal 130-159 mg/dL: Borderline high 160-189 mg/dL: High >190 mg/dL: Very High CARDIAC RISK RATIO 3.4 3.4 - 5.0 C [facility] Blood 09/25/2024 10:5 3 AM EDT 09/25/2024 10:59 AM EDT Ludmila Courtney MD LAB BLOOD ORDERABLES F inal Result [facility] [address] [place] [address] * (ABNORMAL) Basic metabolic panel (09/25/2024 10:53 AM EDT) SODIUM 138 133 - 146 mmol/L [facility] CHLORIDE 102 96 - 108 mmol/L [facility] POTASSIUM 4.4 3.3 - 5.1 mmol/L [facility] CO2 27 21 - 35 mmol/L [facility] BUN 18 6 - 19 mg/dL [facility] CREATININE 1.70(H) 0.5 - 1.5 mg/dL [facility] GLUCOSE 111(H) 70 - 99 mg/dL [facility] CALCIUM 9.7 8.4 - 10.3 mg/dL [facility] EGFR 49(L) >59 mL/min/1.7 3m2 [facility] Comment:Estimated glomerular filtration rate calculated using the CKD-EPI refit equation. ANION GAP 13 10 - 20 mmol/L [facility] Blood 09/25/2024 10:5 3 AM EDT 09/25/2024 10:59 AM EDT us Ludmila Courtney MD LAB BLOOD ORDERABLES F inal Result [facility] [address] [place] [address] from Last 3 Months Insurance [place] * Guarantor: Henrik Agarwal Account Type Relation to Patient Date of Phone Billing Address Personal/Family Self [address] [place] [address] [place] [address] [place] [address] Care Teams Arboreal Scientist Relationship Specialty Start Date End Date Noris Chavarria MD [address] [place] [phone] PCP - General Internal Medicine 08/08/23 Additional Source Comments The information contained in this document represents components of the legal health record. It is not the complete legal health record.[facility]
--- OUTSIDE RECORDS SUMMARY | 2024-12-19 14:22 | XMS_ITS | Encounter Summary ---
Author Organization [employer] Address [address] [facility] 7[address] [place] [address] Care Team Providers Care Circuit Clerk Name Role Phone Noris Chavarria MD Primary Care Pro vider Reason for Visit * Reason Onset Date Comments Med Refill 07/30/2023 Encounter Details Date Type Department Care Team (Late st Contact Info) Description 07/30/2023 Refill [facility] [address] [place] [address] Noris Chavarria MD [address] [place] [address] Type 1 diabetes mellitus without complication (CMS/HCC) [...] Description 12/26/2024 1:00 PM EDT Office Visit [facility] [address] [place] [address] Noris Chavarria MD [address] [place] [address] 01/23/2025 10:30 AM EST Office Visit [facility] OPTOMETRY [address] [place] [address] Kathleen Castellanos, OD [address] [place] [address] documented as of this encounter Visit Diagnoses Diagnosis Type 1 diabetes mellitus without complication Type I (juvenile type) diabetes mellitus without mention of complication, not stated as uncontrolled documented in this encounter Additional Health Concerns Assessment Noted Time PHQ-9 Depression Total Score: 024 4:12 PM EDT documented as of this encounter Care Teams Circuit Clerk Relationship Specialty Start Date End Date Noris Chavarria MD [address] [place], [place] [phone] PCP - General Internal Medicine 08/23/22 documented as of this encounter
--- OUTSIDE RECORDS SUMMARY | 2024-12-19 14:22 | XMS_ITS | Clinical Summary ---
Author Organization [employer] Address [address] [facility] 7[address] [place] [address] Care Team Providers Care Installation And Service Technician Name Role Phone Noris Chavarria MD Primary Care Pro vider Allergies Active Allergy Reactions Criticality Noted Date Comments Amoxicillin 09/22/2020 Other Reaction(s): acid reflux Clavulanic Acid 09/22/2020 Other Reaction(s): acid reflux Medications * This document contains information received from the source organization and may not represent a complete record from that organization. Continuous Blood Gluc Harmonic Analyst (FreeStyle Maria L 2 [place]) device Use as directed to monitor glucose ever 8 hours. 1 each 3 Active TRUEplus Lancets 33G misc TEST BLOOD SUGAR FOUR TIMES DAILY 100 each 11 3 Active insulin lispro (HumaLOG KWIKPEN) 100 UNIT/ML injection Humalog 3 u HS 7 u w lunch ,keep 5 u w breakfast 15 mL 3 4 Active Continuous Glucose Sensor (FreeStyle Maria L 2 Sensor) miscIndications:T ype 1 diabetes mellitus without complication Use as directed to monitor glucose ever 8 hours. Replace sensor every 14 days. 2 each 11 4 Active insulin pen needle (Pentips) 32G x 4 mm miscIndications:T ype 1 diabetes mellitus without complication USE WITH INSULIN THREE TIMES DAILY 100 each 5 4 Active glucose blood (FREESTYLE LITE) test strip b 100 strip 11 5 Active insulin glargine (Lantus) 100 UNIT/ML injection Inject 18 Units under the skin at bedtime. Active gabapentin (Neurontin) 100 MG capsule take 1 capsule by mouth three times a day as needed 5 Active valACYclovir (Valtrex) 500 MG tablet Take 1 tablet by mouth Once per day. 5 Active gabapentin (Neurontin) 300 MG capsuleIndication s:Mood disorder (CMS/HCC) Take 1 capsule (300 mg) by mouth at bedtime. 30 capsule 5 Active pravastatin (Pravachol) 20 MG tabletIndications :Type 1 diabetes mellitus without complication TAKE 1 TABLET BY MOUTH AT BEDTIME 90 tablet 1 5 Active Blood Pressure kit 1 Device Once per day. 1 kit 5 Active lidocaine (Lidoderm) 5 % patchIndications: Low back pain without sciatica, unspecified back pain laterality, unspecified chronicity Apply 1 patch topically Once per day. Remove & discard patch within 12 hours or as directed by MD. 30 patch 2 5 Active amLODIPine (Norvasc) 5 MG tabletIndications :LYNNETTE (acute kidney injury) Take 1 tablet (5 mg) by mouth Once per day. 90 tablet 5 10/22/19 26 Active escitalopram (Lexapro) 10 MG tabletIndications :Mood disorder (CMS/HCC) TAKE 1 TABLET BY MOUTH EVERY DAY 30 tablet 5 Active Active Problems Problem Noted Date Diagnosed Date Submandibular lymphadenopathy 10/21/2024 LYNNETTE (acute kidney injury) 09/30/2024 History of herpes genitalis 09/30/2024 STD exposure 05/16/2024 Assessment & Plan (05/16/2024 1:33 PM EST): Extensive counseling done today Labs already send by CRS team, patient will be contacted with results Sebaceous cyst of axilla 09/25/2023 Type 1 diabetes mellitus with hyperglycemia 07/18 Severe episode of recurrent major depressive disorder, without psychotic features (CMS/HCC) 07/06/2023 Assessment & Plan (07/12/2023 1:31 PM EDT): During IBH Consult Henrik presenting with depressed mood, loss of interests/pleasure , changes in sleep difficulty falling asleep, change in appetite or weight reduce appetite, psychomotor retardation, trouble concentrating, thoughts of worthlessness or guilt, fatigue/loss of energy, inappropriate guilt , hopelessness, worthlessness ; for a period of 0-6 mo, for all symptoms in the context of divorce/separation, family issues, employment concern, and recent job loss. Severe depression on and off over the last years. Denies osmany/hallucinations; pt reports family history of bipolar disorder (mom and oldest son). Complicated marital relationship and job insecurities are exacerbating sxs. Interested in starting psychopharmacology. PLAN: (check all that apply) Continue with current services (defined as services in the past 12 months) . Referral for services placed in 06/2022. Information given for same-day appointments with [facility] program [facility]/Intake for psychopharmacology intake. clinician will follow- up before next physical appointment. Engages in binge consumption of alcohol 03/29/19 24 Health care maintenance 01/30/2023 Hypertension 01/30/2023 Assessment & Plan (05/16/2024 1:33 PM EST): Today blood pressure is elevated but he is visibly upset due to situation with , I advise low Na diet to take his medications every day without missing any dose and f/u with PCP Arthralgia of both hands 11/18/2022 Assessment & Plan (11/18/2022 10:31 AM EDT): Most likely OA, ro CTS. Counseled to use Meloxicam daily x 2w and fu w PCP Tobacco dependence syndrome 08/31/2017 Mood disorder 05/28/2012 Hyperlipidemia 05/28/2012 Microalbuminuria 05/28/2012 Encounters Date Type Department Care Team Description 10/31/2024 10:30 AM EDT Clinical Support [address] [address] Katiuska Staley RN Hypertension, unspecified type 10/31/2024 Results Follow-Up [address] [address] Noris Chavarria MD Urinalysis, Complete, with Reflex to Culture, Comprehensive Metabolic Panel 10/31/2024 Travel 10/30/[address] [facility] [address] [place] [phone] Noris Chavarria MD Mood disorder ([facility]/HCC) 10/21/2024 1:30 PM EDT Office Visit [address] [address] Noris Chavarria MD Low back pain without sciatica, unspecified back pain laterality, unspecified chronicity (Primary Dx); Type 1 diabetes mellitus without complication ([facility]); Hypertension, unspecified type; Type 1 diabetes mellitus with hyperglycemia ([facility]); LYNNETTE (acute kidney injury) ([facility]); Health care maintenance; Severe episode of recurrent major depressive disorder, without psychotic features ([facility]); Tobacco dependence syndrome; Submandibular lymphadenopathy 10/21/2024 Travel 10/13/2024 10:40 AM EDT Office Visit [facility] [address] [place] [phone] Chelsea Williamson MD Mass of right submandibular region (Primary Dx) 10/13/[address] [facility] [address] [place] [phone] Noris Chavarria MD LYNNETTE (acute kidney injury) ([facility]) (Primary Dx) 10/13/2024 Results Follow-Up [address] [address] Noris Chavarria MD Comprehensive Metabolic Panel 10/13/2024 Orders Only [facility] [address] [place] [address] Chelsea Williamson MD 10/13/[address] [address] Noris Chavarria MD sep recall 10/13/2024 Travel 10/06/2024 Refill [facility] [address] [place] [address] Noris Chavarria MD Type 1 diabetes mellitus without complication ([facility]) 09/30/2024 9:45 AM EDT Office Visit [address] [address] Noris Chavarria MD Hypertension, unspecified type (Primary Dx); Type 1 diabetes mellitus without complication ([facility]/HCC); Colon cancer screening; Mood disorder ([facility]/HCC); LYNNETTE (acute kidney injury) ([facility]); Severe episode of recurrent major depressive disorder, without psychotic features ([facility]/HCC); Type 1 diabetes mellitus with hyperglycemia ([facility]); Health care maintenance; History of herpes genitalis 09/30/2024 Travel 09/29/[address] [facility] [address] [place] [address] [phone] Noris Chavarria MD chart prep 09/24/[address] [facility] [address] [place], [place] [phone] Isac Auguste Care Coordination (CHW outreach for SDOH - food needs - LVM ) 09/24/[address] [facility] [address] [place], [place] [phone] Noris Chavarria MD Pre-visit Planning (SDOH positive, Tobacco screening negative. ) from Last 3 Months Immunizations Immunization Administration Dates Next Due Influenza injectable quadrivalent preservative f ree 01/30/2023,01/07/2021 Influenza, IIV3, injectable 12/30/2009, 5 Influenza, Split (incl. purified surface antigen ) 12/04/2012,11/28/2011 Pfizer Covid-19 Vaccine 12+ 05/11/2023 Pneumococcal Conjugate PCV 20 03/28/2023 Pneumococcal Polysaccharide PPSV23 09/18/2014, Rubella 09/29/2004 TD (adult), 2 Lf tetanus tox oid, preservative free, adsorbed 08/31/2004 Tdap 01/30/2023,12/04/2012 Varicella 09/29/2004 Family History Medical History Relation Name Comments Arrhythmia Father DM2 Mother DM2 Mother's Sister Relation Name Status Comments Father Mother Mother's Sister Social History Tobacco Use Types Packs/Day Years Used Date Smoking Tobacco: Some Days Cigarettes Smokeless Tobacco: Never Tobacco Cessation:Ready to Q uit: Not Asked; Counseling Given: Not Answered Comments:Started smoking at 20 y of age until now -smoking 7 a day . PQT calc 9.45 Alcohol Use Standard Drinks/Week Comments Yes 0 (1 standard drink = 0.6 oz pur e alcohol) social Alcohol Answer Date Recorded How often do you have a drink containing alcohol ? 2 09/30/2024 How many drinks containing a lcohol do you have on a typical day when you are drinking? 2 09/30/2024 How often do you have six or more drinks on one occasion? 2 09/30/2024 Depression Answer Date Recorded Patient Health Questionnaire-9 Score 16 09/30/2024 Patient Health Questionnaire-9 Score 16 09/30/2024 Last PHQ-9: Questionnaire Data Not on file 0 09/30/2024 Housing Stability Answer Date Recorded What is your housing situation today? I have jc chris 09/24/[address] you li ve. Do you have problems with any of the following? None of the above 09/24/2024 Food Insecurity Answer Date Recorded Within the past 12 months, y ou worried that your food would run out before you got money to buy more: Often true 09/24/2024 Within the past 12 months,th e food you bought just didn't last and you didn't have enough money to get more: Often true 11/2024 Transportation Answer Date Recorded In the past 12 months, has l ack of transportation kept you from medical appts, meetings, work or from getting things needed for daily living? No 09/24/2024 Utilities Answer Date Recorded In the past 12 months, has t he electric, gas, oil or water company threatened to shut off services in your home? No 09/24/2024 Depression Answer Date Recorded Patient Health Questionnaire-2 Score 4 09/30/2024 Internet Access Answer Date Recorded Internet Access Q1 Yes 09/24/2024 Internet Access Q2 Not on file 09/24/2024 Sex and Gender Information Value Date Recorded Sex Assigned at Male 01/16/2022 10:16 AM EDT Legal Sex Male 10:16 AM EDT Gender Identity Male 01/16/2022 10:16 AM EDT Sexual Orientation Straight 11/17/2022 4: 34 PM EDT Last Filed Vital Signs Vital Sign Reading Time Taken Comments Blood Pressure 130/72 10/31/2024 10:40 AM EDT Pulse 85 10/31/2024 10:40 AM EDT Temperature 36.4 C (97.5 F) 10/21/2024 2:09 PM EDT Respiratory Rate 16 10/31/2024 10:40 AM EDT Oxygen Saturation 97% 10/31/2024 10:40 AM EDT room air Inhaled Oxygen Concentration - - Weight 75.3 kg (166 lb) 10/21/2024 2:09 PM EDT Height 182.9 cm (6') 10/21/2024 2:09 PM EDT Body Mass Index 22.51 10/21/2024 2:09 PM EDT Plan of Treatment Upcoming Encounters Date Type Department Care Team (Late st Contact Info) Description 12/26/2024 1:00 PM EDT Office Visit [facility] [address] [place] [address] Noris Chavarria MD [address] [place] [address] 01/23/2025 10:30 AM EST Office Visit [facility] [address] [place] [address] Kathleen Castellanos, OD [address] [place] [address] Health Maintenance Due Date Last Done Comments CT Colonography 1975 Colonoscopy 1975 Colorectal Cancer Screening 1975 FIT DNA/Cologuard 1975 FIT 1975 FOBT 1975 Sigmoidoscopy 1975 Diabetes: Foot Exam 12/14/1985 Eye Exam 12/14/1985 Family Planning (PISQ) 12/14/1990 Diabetes: Urine Protein Screening 12/14/1994 Hepatitis B Vaccines (1 of 3 - 19+ 3-dose series) 12/14/1994 Lipid Panel 09/05/2024 09/06/2023, 03/19, 06/15/2021 COVID-19 Vaccine ( season) 2024 05/11/2023, 08/07/2020, 07/17/2020 Influenza Vaccine (#1) 2024 , 01/07/2021, 12/04/2012, Additional history exists Diabetes: Hemoglobin A1C 01/21/2025 025, 09/25/2024, 09/06/2023, Additional history exists Depression Monitoring 04/02/2025 09/30/2024, 025 SDOH Screening 09/24/2025 09/24/2024 Alcohol/Substance Use Screening 09/30/2025 09/30/2024 Disability Screening 09/30/2025 09/30/2024 Tobacco Screening 10/21/2025 10/21/2024 Zoster Vaccines (1 of 2) 12/14/2025 DTaP/Tdap/Td Vaccines (3 - Td or Tdap) 01/30/2033 01/30/2023, 12/04/2012, 08/31/2004 RSV Patients and Patients Aged 60 years or older (1 - 1-dose 75+ series) 12/14/2050 Pneumococcal Vaccine: Pediatrics (0 to 5 Years) and At-Risk Patients (6 to 49) Years Completed 03/28/2023, 09/18/2014, 12/31/2000 HIV Screening Completed 05/16/2024, 03/19, 01/11/2021 Hepatitis C Screening Completed 05/16/2024 , 03/28/2023, 01/11/2021 HIB Vaccines Aged Out No longer eligi ble based on patient's age to complete this topic HPV Vaccines Aged Out No longer eligi ble based on patient's age to complete this topic Hepatitis A Vaccines Aged Out No long er eligible based on patient's age to complete this topic IPV Vaccines Aged Out No longer eligi ble based on patient's age to complete this topic Meningococcal B Vaccine Aged Out No l onger eligible based on patient's age to complete this topic Meningococcal Vaccine Aged Out No mark jyoti eligible based on patient's age to complete this topic RSV under 20 months Aged Out No longe r eligible based on patient's age to complete this topic Rotavirus Vaccines Aged Out No longer eligible based on patient's age to complete this topic Procedures Procedure Name Priority Date/Time Associated Diagnosis Comments COMPREHENSIVE METABOLIC PANEL Routine 10/31/2024 10:57 AM EDT LYNNETTE (acute kidney injury) (CMS/[facility]) URINALYSIS, COMPLETE, WITH REFLEX TO CULTURE Routine 10/31/2024 10:57 AM EDT LYNNETTE (acute kidney injury) (CMS/HCC) POCT GLYCATED HEMOGLOBIN, TOTAL Routine 10/21/2024 2:17 PM EDT Type 1 diabetes mellitus without complication (CMS/HCC) POCT GLUCOSE Routine 10/21/2024 2:14 PM EDT Type 1 diabetes mellitus without complication (CMS/HCC) US HEAD NECK SOFT TISSUE Routine 10/13/2024 1:44 PM EDT COMPREHENSIVE METABOLIC PANEL Routine 10/13/2024 8:54 AM EDT LYNNETTE (acute kidney injury) (CMS/HCC) HEPATITIS C ANTIBODY ([place] [facility]) Routine 05/16/2024 HIV ANTIBODY/ANTIGEN ([place] DP) Routine 05/16/2024 LIPID PANEL, STANDARD Routine 09/06/2023 1:27 PM EDT Type 1 diabetes mellitus without complication (CMS/HCC) from Last 3 Months or Most Recently Relevant to Health Maintenance Results * (ABNORMAL) Urinalysis, Complete, with Reflex to Culture (10/31/2024 10:57 AM EDT) Color Urine Yellow [facility] Appearance Urine Clear [facility] PH 6.5 5.0 - 9.0 [facility] Glucose Urine UA Negative Negative mg/dL [facility] Urine Blood Trace(A) Negative [facility] Specific Allred - Urine 1.015 1.005 - 1.025 [facility] Urine Protein 100 (2+)(A) Neg-Trace mg/dL [facility] Urine Ketones Negative Negative mg/dL [facility] Nitrite Urine Negative Negative [facility] Leukocyte Esterase Urine Negative Negative [facility] RBC Urine 0-2 0 - 2 /HPF [facility] Urine WBC 0-5 0 - 5 /HPF [facility] Urine Squamous Epithelial Cell 0-2 0 - 2 /HPF [facility] Urine Bacteria None Seen None Seen [facility] Hyaline Casts, Urine 0-2 0 - 2 /LPF [facility] Urine 10/31/2024 10:5 7 AM EDT 10/31/2024 1:00 PM EDT Narrative [facility] - 10/31/2024 1:10 PM EDT Urine, Clean Catch us Noris Stevens MD LAB URINE ORDERAB LES Final Result [facility] [address] [place] [address] [phone] * (ABNORMAL) Comprehensive Metabolic Panel (10/31/2024 10:57 AM EDT) Only the most recent of2 resultswithin the time period is included. Sodium 139 135 - 145 mmol/L [facility] Potassium 3.8 3.3 - 5.1 mmol/L [facility] Chloride 105 96 - 108 mmol/L [facility] Carbon Dioxide 26 22 - 29 mmol/L [facility] Anion Gap 12 12 - 20 [facility] Urea Nitrogen (BUN) 13 9 - 16 mg/dL [facility] Creatinine, Serum 1.51(H) 0.5 - 1.4 mg/dL [facility] Estimated Glomerular Filt Rate 50 [facility] Comment:Chronic Kidney Disea se: Estimated GFR < 60 mL/min/[id number] Kidney Disease: Estimated GFR < 15 mL/min/1.73m2 Glucose 123(H) 60 - 115 mg/dL [facility] Calcium 9.0 8.4 - 10.2 mg/dL [facility] Bilirubin, Total 0.4 0.0 - 1.0 mg/dL [facility] Aspartate Amino Transferase 33 5 - 37 U/L [facility] Alanine Aminotransferase 27 0 - 40 U/L [facility] Total Protein 6.6 6.5 - 8.0 g/dL [facility] Albumin Level 3.7 3.5 - 5.0 g/dL [facility] Alkaline Phosphatase 89 39 - 117 U/L [facility] Blood Venous blood specimen / Unknown 10/31/2024 10:57 AM EDT 10/31/2024 1:29 PM EDT Noris Stevens MD LAB BLOOD ORDERAB LES Final Result [facility] [address] [place] [phone] * (ABNORMAL) POCT HGB A1C (10/21/2024 2:17 PM EDT) Hemoglobin A1C 8.9(A) 4.0 - 5.7 % QC Media Lot # [id number] Lot# Expiration Date [id number] Blood 10/21/2024 2:17 PM EDT Noris Stevens MD POINT OF CARE JOHNSON T ENTER/EDIT ORDERABLES Final Result * POCT Glucose (10/21/2024 2:14 PM EDT) Glucose Blood, POC 147 60 - 200 mg/dL QC Media Lot # [id number] Lot# Expiration Date [id number] Blood Capillary blood specimen / Unknown 10/21/2024 2:14 PM EDT Noris Stevens MD POINT OF CARE JOHNSON T ENTER/EDIT ORDERABLES Final Result * US Head Neck Soft Tissue (10/13/2024 1:44 PM EDT) Anatomical Region Laterality Modality Head, Neck Ultrasound 10/13/2024 1:44 PM EDT Narrative 10/13/2024 2:26 PM EDT [address] [address] Ultrasound Report Signed Patient: Henrik Agarwal MR#: [id number] : 1975 Acct:[id number] Age/Sex: 48 / M ADM Date: 10/13/24 Loc: HO.US Attending Dr: Chelsea Wililamson MD Ordering Physician: Chelsea Williamson MD Date of Service: 10/13/24 Procedure(s): US soft tiss head and/or neck Accession Number(s): [id number] cc: Chelsea Williamson MD; Noris Chavarria MD EXAMINATION: US HEAD AND NECK LIMITED CLINICAL INFORMATION: Localized swelling/mass/lump.. COMPARISON: None available. TECHNIQUE: Linear transducer ly-scale and color Doppler examination with attention to the right submandibular region. FINDINGS: There is a 1.6 and 2.0 cm fatty hilum prominent lymph nodes. US/US soft tiss head and/or neck IMPRESSION: Nonspecific prominent less than 2 cm lymph nodes, right submandibular compartment.. Electronically signed by: Nicolas Pacheco MD 10/13/2024 02:23 PM EDT RP Dictated By: Nicolas Ferro MD Signed By: <Electronically signed by Nicolas Dooley MD in OV> 10/13/24 1423 DD/ 1344 TD/TT: 10/13/24 1345 Pouch Making Machine Operator: Procedure Note Donotuseinterpreter, Image - 10/13/2024 [place] [phone] Ultrasound Report Signed Patient: Henrik AgarwalMR#: [id number] : 1975Acct:[id number] Age/Sex: 48 / MADM Date: 10/13/24 Loc: HO.US Attending Dr: Chelsea Williamson MD Ordering Physician: Chelsea Williamson MD Date of Service: 10/13/24 Procedure(s): US soft tiss head and/or neck Accession Number(s): [id number] cc: Chelsea Williamson MD; Noris Chavarria MD EXAMINATION: US HEAD AND NECK LIMITED CLINICAL INFORMATION: Localized swelling/mass/lump.. COMPARISON: None available. TECHNIQUE: Linear transducer ly-scale and color Doppler examination with attention to the right submandibular region. FINDINGS: There is a 1.6 and 2.0 cm fatty hilum prominent lymph nodes. US/US soft tiss head and/or neck IMPRESSION: Nonspecific prominent less than 2 cm lymph nodes, right submandibular compartment.. Electronically signed by: Nicolas Pacheco MD 10/13/2024 02:23 PM EDT RP Dictated By: Nicolas Ferro MD Signed By: <Electronically signed by Nicolas Dooley MDin OV> 10/13/24 1423 DD/ 1344 TD/TT: 10/13/24 1345 Pouch Making Machine Operator: Chelsea Williamson MD IMG US PROCEDURES Final Result * Hepatitis C Antibody ([facility]) (05/16/2024) Pathologist [facility] Hepatitis C Ab Nonreactive Blood 05/16/2024 Result [facility] Historical Provider LAB BLOOD ORDERABLES Joaquina l Result * HIV Ab/Ag ([facility]) (05/16/2024) Pathologist [facility] HIV Ag/Ab Nonreactive Blood 05/16/2024 Result [facility] Historical Provider LAB BLOOD ORDERABLES Joaquina l Result * Lipid Panel, Standard (09/06/2023 1:27 PM EDT) Triglycerides 74 <150 mg/dL [facility] Comment:Desirable Triglyceri de: less than 150 mg/dLBorderline High Triglyceride 150-199 mg/dLHigh Triglyceride: 200-499 mg/dLVery High Triglyceride: greater than or equal to 5OO mg/dL Cholesterol 151 <200 mg/dL [facility] Comment:Desirable Cholestero l: less than 200 mg/dLBorderline High Cholesterol: 200-239 mg/dLHigh Cholesterol: greater than 239 mg/dL LDL Cholesterol Calculated 87 <100 mg/dL [facility] Comment:Desirable LDL: less than 100 mg/dLNear Optimal/Above Optimal LDL: 110- 129 mg/dLBorderline High LDL: 130-159 mg/dLHigh LDL: 160-189 mg/dLVery High LDL: greater than or equal to 190 mg/dL HDL Cholesterol 50 >40 mg/dL [facility] Comment:Desirable HDL: great er than 40 mg/dL Note: This HDL assay may give artificially low results in patients with liver disease. Blood Venous blood specimen / Unknown 09/06/2023 1:27 PM EDT 09/06/2023 4:05 PM EDT Noris Stevens MD LAB BLOOD ORDERAB LES Final Result [facility] [address] [place] [address] [phone] from Last 3 Months or Most Recently Relevant to Health Maintenance Insurance [facility] C3 Care Teams Installation And Service Technician Relationship Specialty Start Date End Date Noris Chavarria MD [address] [place] [address] [phone] PCP - General Internal Medicine 08/23/22
--- OUTSIDE RECORDS SUMMARY | 2024-12-19 14:22 | XMS_ITS | Encounter Summary ---
Author Organization [employer] Address [address] [facility] [address] [place] [address] Care Team Providers Care Grainer Machine Name Role Phone Noris Chavarria MD Primary Care Pro vider Reason for Visit * Reason Onset Date Comments Med Refill 05/21/2024 Encounter Details Date Type Department Care Team (Late st Contact Info) Description 05/21/2024 Refill [facility] [address] [place] [address] Noris Chavarria MD [address] [place] [address] Type 1 diabetes mellitus without complication (CMS/HCC) [...] Description 12/26/2024 1:00 PM EDT Office Visit [facility] [address] [place] [address] Noris Chavarria MD [address] [place] [phone] 01/23/2025 10:30 AM EST Office Visit [facility] [address] [place] [address] Kathleen Castellanos, OD [address] [place] [address] documented as of this encounter Visit Diagnoses Diagnosis Type 1 diabetes mellitus without complication Type I (juvenile type) diabetes mellitus without mention of complication, not stated as uncontrolled documented in this encounter Additional Health Concerns Assessment Noted Time PHQ-9 Depression Total Score: 024 4:12 PM EDT documented as of this encounter Care Teams Grainer Machine Relationship Specialty Start Date End Date Noris Chavarria MD [address] [place], [place] [phone] PCP - General Internal Medicine 08/23/22 documented as of this encounter
--- OUTSIDE RECORDS SUMMARY | 2024-12-19 14:22 | XMS_ITS | Encounter Summary ---
Author Organization [employer] Address [address] [facility] [address] [place] [address] Care Team Providers Care Applications Project Manager Name Role Phone Noris Chavarria MD Primary Care Pro vider Reason for Visit * Reason Onset Date Comments Med Refill 11/06/2023 Encounter Details Date Type Department Care Team (Late st Contact Info) Description 11/06/2023 Refill [facility] MEDIC[facility] [address] [place] [address] Noris Chavarria MD [address] [place] [address] Type 1 diabetes mellitus without complication (CMS/HCC) [...] Description 12/26/2024 1:00 PM EDT Office Visit [facility]INE [address] [place] [address] Noris Chavarria MD [address] [place] [address] 01/23/2025 10:30 AM EST Office Visit [facility] OPTOMETRY [address] [place] [address] Kathleen Castellanos, OD [address] [place] [address] documented as of this encounter Visit Diagnoses Diagnosis Type 1 diabetes mellitus without complication Type I (juvenile type) diabetes mellitus without mention of complication, not stated as uncontrolled documented in this encounter Additional Health Concerns Assessment Noted Time PHQ-9 Depression Total Score: 024 4:12 PM EDT documented as of this encounter Care Teams Applications Project Manager Relationship Specialty Start Date End Date Noris Chavarria MD [address] [place], [place] [phone] PCP - General Internal Medicine 08/23/22 documented as of this encounter
== END 2024-12-19 14:17 | disposition home or self-care (01) ==
LOC: HO.US 14:16
PROVIDERS: PCP Student in an Organized Health Care Education/Training Program; Visit Provider Student in an Organized Health Care Education/Training Program
DX: N17.9 Acute kidney failure, unspecified (principal)
CPT/HCPCS: 76775

== ENCOUNTER → 2024-12-19 14:52 | Outpatient (BNV) | payer MEDICAID, SELFPAY | PROVIDERS: PCP Student in an Organized Health Care Education/Training Program; Visit Provider Radiology Diagnostic Radiology | DX: N17.9 Acute kidney failure, unspecified (principal) | CPT/HCPCS: 76775 ==